=== PATIENT | female | born 1960 | race Caucasian/White ===

== ENCOUNTER 2018-01-23 07:00 | Day surgery (SDC) | payer OTHER ==
[~2018-01-23] VITALS: Ht 152.4 cm; Wt 74.5 kg
[~2018-01-23 07:00] MED LIST: SODIUM CHLORIDE 0.9% 1,000 ML IV ONE
[2018-01-23] MEDS ORDERED: LIDOCAINE 4% 50 ML SOLUTION TP ONE (07:01)
[2018-01-23] MEDS ORDERED: BENZOCAINE 20% 50 MCG/SPRAY 57 GM TP ONE (07:01)
[2018-01-23] MEDS ORDERED: LIDOCAINE 2% 30 ML JELLY TP ONE (07:01)
[2018-01-23] MEDS ORDERED: SODIUM CHLORIDE 0.9% 1,000 ML IV ONE (07:13)
[2018-01-23] MEDS ORDERED: QUET200T PO (07:25)
[2018-01-23] MEDS ORDERED: GABA-531 PO (07:25)
[2018-01-23] MEDS ORDERED: QUET100T PO (07:25)
[2018-01-23] MEDS ORDERED: CITA10TA68 PO (07:25)
[2018-01-23] MEDS ORDERED: LISI-661 PO (07:25)
[2018-01-23] MEDS ORDERED: FentaNYL CITRATE-PF 100 MCG/2 ML VIAL ONE (07:49)
[2018-01-23] MEDS ORDERED: MIDAZOLAM HCL 2 MG/2 ML VIAL ONE (07:49)
[2018-01-23] MEDS ORDERED: MethylPREDNISolone SOD SUCC 125 MG/2 ML VIAL IVP ONE (09:30)
[2018-01-23] MEDS ORDERED: OXYGEN THERAPY IH SCH (20:00)
== END 2018-01-23 11:15 | disposition home or self-care (01) ==
LOC: SURGERY 07:00
PROVIDERS: ATTEND Internal Medicine Critical Care Medicine
DX: J38.4 Edema of larynx (principal); B37.0 Candidal stomatitis; J84.111 Idiopathic interstitial pneumonia, not otherwise specified; J98.09 Other diseases of bronchus, not elsewhere classified; J98.8 Other specified respiratory disorders; I70.0 Atherosclerosis of aorta; F17.210 Nicotine dependence, cigarettes, uncomplicated; I10 Essential (primary) hypertension; F32.89 Other specified depressive episodes; M19.90 Unspecified osteoarthritis, unspecified site; M81.0 Age-related osteoporosis without current pathological fracture; Z88.2 Allergy status to sulfonamides; Z90.722 Acquired absence of ovaries, bilateral; Z87.01 Personal history of pneumonia (recurrent); Z87.09 Personal history of other diseases of the respiratory system; Z86.69 Personal history of other diseases of the nervous system and sense organs; Z79.891 Long term (current) use of opiate analgesic; Z98.890 Other specified postprocedural states; Z79.899 Other long term (current) drug therapy
CPT/HCPCS: 31623; 31624; 71045; 87015; 87070; 87205; 87206; 87220; 88108; 88312; 99152; J2250; J2930; J3010; J7030